=== PATIENT | male | born 1950 | race Caucasian/White ===

== ENCOUNTER → 2022-11-11 | Day surgery (SDC) | payer OTHER ==
[~2022-11-11] MED LIST: Atropine Sulfate 0.4 mg/1 ml Vial ONE; Heparin 10,000 UNITS/ 10 ML VIAL ONE; Iopamidol 300 61% 100 ML VIAL FS ONE; Lidocaine 1% (PF) 30 ML VIAL ONE; Midazolam HCl 2 mg/2 ml Vial ONE; PHENYLEPHRINE-NS 100 MCG/ML 10 ML SYRINGE ONE; fentaNYL 50 mcg/mL 1 mL Vial ONE
[2022-11-11 06:36] VITALS: BMI 30.7
[2022-11-11 07:05] LABS: #Monocytes 0.8 10x3/uL (0.0-1.1); %Basophils 0.3 % (0.0-2.0); %Eosinophils 0.1 % (0.0-6.0); %Lymphocytes 9.6 % (18.0-47.0); %Monocytes 6.2 % (0.0-10.0); %Neutrophils 80.9 % (40.0-75.0); Hemoglobin 13.3 g/dL (13.5-17.5); Mean Corpuscular HGB CONC 31.7 g/dL (32.0-36.0); Mean Corpuscular Hemoglobin 28.6 pg (27.0-33.0); Mean Corpuscular Volume 90.1 fl (81.2-95.1); Mean Platelet Volume 10.1 fl (7.4-10.4); Platelet Count 393 10x3/uL (150-450); RBC Distribution Width 13.8 % (11.5-14.5); Red Blood Cell (RBC) Count 4.65 10x6/uL (4.32-5.72); White Blood Cell (WBC) Count 13.6 10x3/uL (3.5-10.5)
[2022-11-11 07:17] LABS: Anion Gap 13 mmol/L (10-20); BUN (Urea Nitrogen) 24 mg/dL (8.4-25.7); Calc. Creatinine Clearance 100 mL/min (70-130); Calcium 9.2 mg/dL (7.8-10.44); Carbon Dioxide 28 mmol/L (23-31); Chloride 101 mmol/L (98-107); Estimated GFR 89; Glucose 134 mg/dL (80-115); Potassium 4.8 mmol/L (3.5-5.1); Sodium 137 mmol/L (136-145)
[2022-11-11 07:31] LABS: INR-International Normal Ratio 0.9; PTT 24.2 sec (22.0-33.0); Prothrombin Time 10.1 sec (9.5-12.1)
== END ==
LOC: CSHSDC 06:04
PROVIDERS: ATTEND Specialist
PROC: 03H Upper Arteries, Insertion (ICD-10-PCS; principal; 2022-11-11)
DX: I65.23 Occlusion and stenosis of bilateral carotid arteries (principal); I48.0 Paroxysmal atrial fibrillation; I42.0 Dilated cardiomyopathy; I50.33 Acute on chronic diastolic (congestive) heart failure; I11.0 Hypertensive heart disease with heart failure; I34.2 Nonrheumatic mitral (valve) stenosis; J44.9 Chronic obstructive pulmonary disease, unspecified; I25.10 Atherosclerotic heart disease of native coronary artery without angina pectoris; E78.2 Mixed hyperlipidemia; G47.00 Insomnia, unspecified; B18.1 Chronic viral hepatitis B without delta-agent; Z99.81 Dependence on supplemental oxygen; Z79.899 Other long term (current) drug therapy
CPT/HCPCS: 36222; 36223; 71045; 80048; 85025; 85610; 85730; 93005; 93010; 99152; C1760; C1769; C1894; J0461; J1644; J2001; J2250; J3010; Q9967